=== PATIENT | female | born 1940 | race Caucasian/White ===

== ENCOUNTER → 2024-02-02 10:59 | Outpatient (REF) | payer MEDICARE, OTHER, SELFPAY | LOC: PAVMRI 10:59 | PROVIDERS: ATTENDING PHYSICIAN Orthopaedic Surgery; FAMILY PHYSICIAN Internal Medicine | DX: M54.2 Cervicalgia (principal); R07.9 Chest pain, unspecified | CPT/HCPCS: 71046; 72050; 72148 ==

== ENCOUNTER → 2024-02-02 11:01 | Outpatient (REF) | payer MEDICARE, OTHER, SELFPAY | LOC: REG 11:01 | PROVIDERS: ATTENDING PHYSICIAN Orthopaedic Surgery; FAMILY PHYSICIAN Internal Medicine | DX: R07.9 Chest pain, unspecified (principal); M54.2 Cervicalgia | CPT/HCPCS: 71046; 72050 ==

== ENCOUNTER 2024-03-23 12:38 | Emergency (ER) | payer MEDICARE, OTHER, SELFPAY ==
--- NOTE | 2024-03-23 12:51 | ED.GENMED ---
History of Present Illness
General
Chief Complaint: CODE
Source: ambulance crew
Exam Limitations: clinical condition
Time Seen by Provider: 03/23/24 12:50
Travel History
Have you had any contact with someone who has COVID-19?: Unable to Answer
Do you have any symptoms of coronavirus? Fever > 100 degrees, chills, cough, shortness of breath, sore throat, loss of taste or smell, muscle aches, or headache?: Unable to Answer
History of Present Illness
History of Present Illness:
See MDM
Past History
Past History
ED Past Medical History: Arrthythmia (afib), Other (hydrocephalus) and Other (reviewed pmhx and agree)
ED Past Surgical History: Other (reviewed pshx and agree.)
Social History
Tobacco: Non-smoker
Personal:
Living: with family
Phy Exam
Physical Exam
Physical Exam:
See MDM
Course
Orders/Labs/Results
Orders:
Orders
03/23/24 12:39
EPINEPHrine [Adrenalin 1 mg/10 ml] 6 mg .ROUTE .STK-MED ONE
Sodium Bicarbonate 50 meq .ROUTE .STK-MED ONE
MDM/Problems Addressed
Differential Diagnosis Includes:
HPI and MDM Narrative:
84-year-old female presenting as a prearrival cardiac arrest. Per EMS, patient was had agonal breathing when they arrived. They witnessed the cardiac arrest. EMS intubated. Patient found to have significant amount of bloody frothy and airway.
EMS supplied 9 epinephrines and 1 bicarb. They had placed the patient on the Vinnie machine. EMS stating they have had intermittent ROSC but it quickly fades on epinephrine wears off. Patient has had another shockable rhythm. On arrival, patient
met by myself, nursing staff and respiratory. Respiratory quickly bagging and patient is difficult to bag. She has frothy bloody sputum throughout. Patient has cyanotic and mottled skin. Pupils are fixed and dilated. EMS stating that patient
had advanced directives to not be intubated or ventilated but wanted everything done
EMS stating that they have been working on her for about 55 minutes.
We did continue the Vinnie machine and epinephrine. After multiple pulse checks revealed no palpable pulse, bedside echo was performed showing no cardiac activity. Time of was called at 12:48 PM
Physical exam
General: Lying in bed, Vinnie machine ongoing, cyanotic appearing, bloody frothy sputum in ET tube
HEENT: Not protecting airway. Bloody frothy sputum in ET tube. Pupils fixed and dilated
Neck: appears supple
CV: evidence of cyanosis, skin mottling, no pulses palpated
Resp: Diffuse crackles
Abd: Non-distended
Extremities: No deformities
Neuro: GCS 3
Psych: Flat affect
Skin: Cool and mottled
Problems Addressed including Acute and Chronic Conditions affecting care:
1. Cardiac arrest
Acuity: acute
Prognosis: unstable
Details: Potentially in the setting of CHF. Regardless, patient intubated and multiple rounds of epinephrine given. Given the prolonged CPR time and no palpable pulses in the emergency department, time of called at 1248
Update:
Case discussed with family at 1 PM. stating that she has been complaining of shortness of breath for several days. He had mentioned that she has been coughing and pulse ox was in the upper 80s. Before EMS arrived, states that her
lips were blue
2 PM Case discussed with certified court/medical interpreter Armin and patient released
Differential Diagnosis (but not limited to): Acute coronary syndrome, MT, pulmonary edema, pulmonary embolism
Testing considered: Chest x-ray
Drug therapy (if applicable): OTC meds, please see d/c instruction regarding Rx drugs
Amount and/or Complexity of Data Reviewed
Clinical info obtained from: EMS
External data reviewed: N/A
Labs I independently reviewed (but not limited to): N/A
Radiology: N/A
Pulse Ox: hypoxic
Merchandiser Seasonal: PEA
Critical Care: The high probability of a clinically significant, sudden or life threatening deterioration of the cardiopulmonary system(s) required my full and direct attention, intervention and personal management. The aggregate critical care time
was 20 minutes. This time is in addition to time spent performing reported procedures but includes the following:
[x] Data Review and interpretation
[x] Patient assessment and monitoring of vital signs
[x] Documentation
[x] Medication orders and management
Risk of Complication:
Social Determinants of health: Good social support
Discussed with other providers: N/A
Escalation of Care includes Admit/Obs: Time of called at 12:48 PM
Occasional wrong word or 'sound a like' substitutions may have occurred due to the inherent limitations of voice recognition software. Read the chart carefully and recognize, using context, where substitutions have occurred.
*Critical Care Note
Total Time (30-74mins, 75-104mins- exclusive of procedures): 20 min
ED Attending Note
-
Portions of this chart may have been created with voice recognition software.� Occasional wrong word or��sound alike� substitutions may have occurred due to the inherent limitations of voice recognition software.
Discharge Plan
Departure
Patient Disposition:
Date of Disposition: 03/23/24
Time of Disposition: 13:16
Discharge Problem:
Cardiac arrest, Pulmonary edema
Prescriptions:
No Action
multivitamin [Daily Multiple] 1 EACH tablet
1 ea PO DAILY
Patient Comments:
take with a meal
atorvastatin [Lipitor] 40 MG tablet
40 mg PO DAILY
amiodarone 200 MG tablet
200 mg PO DAILY
citalopram 20 MG tablet
40 mg PO DAILY
ferrous sulfate [FeroSul] 325 MG tablet
325 mg PO DAILY
ursodiol 300 MG capsule
300 mg PO TID
docusate sodium 100 MG capsule
100 mg PO HS PRN (Reason: constipation)
aspirin 81 MG tablet,chewable
81 mg PO DAILY
simethicone [Gas-X Extra Strength] 125 MG tablet,chewable
80 mg PO QID
Patient Comments:
with meals and HS
magnesium 200 MG tablet
400 mg PO DAILY
Patient Comments:
take with a meal
solifenacin 5 MG tablet
10 mg PO DAILY
folic acid 0.8 MG capsule
0.12 mg PO DAILY
levothyroxine [Tirosint] 13 MCG capsule
13 mcg PO DAILY
calcium-vitamin D3-vitamin K 1 EACH tablet,chewable
1 ea PO
Patient Comments:
[id number]
coenzyme Q10 50 MG tablet,chewable
30 mg PO DAILY
Patient Comments:
with a meal daily
L.acidoph, paracasei,B. lactis 1 EACH capsule
1 ea PO DAILY
Ra Wilfrid Oil
1,000 mg PO DAILY
Referrals:
UNKNOWN,NO INTERVIEW [Family Provider] -
Discharge Date and Time
Print Language: YI
== END 2024-03-23 15:41 | disposition expired ==
LOC: EMR 12:38
PROVIDERS: EMERGENCY PHYSICIAN Student in an Organized Health Care Education/Training Program
DX: I46.9 Cardiac arrest, cause unspecified (principal); J81.0 Acute pulmonary edema; I48.91 Unspecified atrial fibrillation; G91.9 Hydrocephalus, unspecified
CPT/HCPCS: 99285